=== PATIENT | female | born 1950 | race Caucasian/White ===

== ENCOUNTER 2018-05-19 10:07 | Emergency (ER) | payer MEDICARE ==
[2018-05-19] MEDS: HYDROmorphONE 1 MG/ML SYG IV ×2 (10:40→14:13)
[2018-05-19] MEDS: KETOROLAC 30 MG INJ IV (10:40)
[2018-05-19] MEDS: ONDANSETRON 4 MG INJ IV ×2 (10:40→14:14)
[2018-05-19 11:30] LABS: TROPONIN-I < 0.012 ng/ml (0.000-0.120)
[2018-05-19] MEDS: DIAZEPAM 5 MG/ML SYG IV (14:03)
== END 2018-05-19 15:55 | disposition home or self-care (01) ==
LOC: E/R 10:07
DX: S29.011A Strain of muscle and tendon of front wall of thorax, initial encounter (principal); M62.838 Other muscle spasm; R07.9 Chest pain, unspecified; X58.XXXA Exposure to other specified factors, initial encounter; Y92.9 Unspecified place or not applicable
CPT/HCPCS: 36415; 71045; 84484; 93005; 96374; 96375; 96376; 99284-25